=== PATIENT | male | born 1945 | race African-American/Black ===

== ENCOUNTER → 2020-03-23 | Day surgery (SDC) | payer MEDICARE, BC ==
--- NOTE | 2020-03-18 13:36 | Opthalmology H&P ---
Ophthalmology H&P H&P Chief Complaint: decreased vision in left eye HPI Vision Affects Ability to: read, manage personal affairs Past Ocular History: retinal problems - Macular edema OU HPI Narrative Blurry vision Exam Visual Acuity: OD 20/40 OS 20/40-2 Tension: OD 12 OS 14 Eye Exam: normal OU: external exam, palpebral fissure-width, marginal reflex distance, levator function, corneas, anterior chambers, fundus exam - NPDR OU; findings: lens - NS Cataracts OU, fundus exam - NPDR OU Assessment/Plan Treatment Plan: cataract extraction w/ lens implant Goals of Treatment: improvement of vision, enhance quality of life Attestation Attestation The risks and benefits of the surgery as well as alternative procedures were explained to the patient in detail. Bhargav Ralph MD Mar 18, 2020 13:36
--- NOTE | 2020-03-18 13:38 | Pre-Procedure Note/Attestation ---
Pre-Procedure Note/Attestation Complete Prior to Procedure Planned Procedure: left Procedure Narrative: Cataract extraction with intraocular lens implant left eye Indications for Procedure Pre-Operative Diagnosis: Nuclear sclerotic cataract left eye Attestation I attest that I discussed the nature of the procedure; its benefits; risks and complications; and alternatives (and the risks and benefits of such alternatives ), prior to the procedure, with the patient (or the patient's legal contact representative). I attest that, if there was a reasonable possibility of needing a blood transfusion, the patient (or the patient's legal contact representative) was given the [facility] standardized written summary, pursuant to the [place] Blood Safety Act ([place] Health and Safety Code # 1645, as amended). I attest that I re-evaluated the patient just prior to the surgery and that there has been no change in the patient's H&P, except as documented below: Bhargav Ralph MD Mar 18, 2020 13:38
[2020-03-19 08:48] LABS: HEMATOCRIT 27.5 % (42.0-52.0); HEMOGLOBIN 9.4 G/DL (14.2-18.0); MEAN CORPUSCULAR VOLUME 87 FL (80-99); PLATELET COUNT 191 K/UL (150-450); RED BLOOD COUNT 3.16 M/UL (4.70-6.10); RED CELL DISTRIBUTION WIDTH 16.3 % (11.6-14.8); WHITE BLOOD COUNT 8.9 K/UL (4.8-10.8)
[2020-03-19 08:52] LABS: INR 1.1 (0.9-1.1)
[2020-03-19 08:55] LABS: ANION GAP 8 mmol/L (5-15); BLOOD UREA NITROGEN 34 mg/dL (7-18); CALCIUM 8.5 MG/DL (8.5-10.1); CARBON DIOXIDE 28 MMOL/L (21-32); CHLORIDE 105 MMOL/L (98-107); CREATININE 2.3 MG/DL (0.55-1.30); POTASSIUM 3.8 MMOL/L (3.5-5.1); SODIUM 141 MMOL/L (136-145)
--- NOTE | 2020-03-19 11:03 | Diagnostic Imaging Report ---
Indication: Shortness of breath Technique: 2 views of the chest Comparison: None Findings: Left chest port catheter is demonstrated. The lungs and pleural spaces are clear. On the lateral view, there are surgical clips and what appears to be a pigtail drainage catheter in the upper abdomen, not appreciated on the PA view. Metallic objects overlie the heart on the PA view, probably demonstrated to be external to the patient on the lateral view Impression: No acute process. Findings as noted
[~2020-03-23] VITALS: Ht 167.6 cm; Wt 113.4 kg
[2020-03-23] VITALS (8 sets, daily range): BP systolic 134–149; BP diastolic 62–77
[~2020-03-23] MED LIST: ACETAMINOP160 MG/54 ORAL; ASCORBIC ACID500 M4 ORAL; ASPIR 8181 MG ORAL; ATORVASTATIN CA80 MG ORAL; Akten 3.5% 1ml Btl LEFT EYE ONE; Atropine Sulfate 0.4mg/ml inj IVP PRN; BSS 15ml BTL ONE; BSS 500ml btl ONE; Bupivacaine 0.75% 30ml vial INJ ONE; CARVEDILOL12.5 MG ORAL; CYMBALTA30 MG ORAL; Carbachol 0.01% Op Soln 1.5ml vial ONE; DOXAZOSIN MESYLA8 MG ORAL; DiphenhydrAMINE 50mg/ml Inj IVP PRN; ELIQUIS5 MG PO; EPINEPHrine 1mg/1ml Amp ONE; FERROUS SULFAT325 MG ORAL; FLOMAX0.4 MG ORAL; Flumazenil 0.5mg/5ml Inj IV ONE; GABAPENTIN400 MG ORAL; HYDROcodone/Acetamin 5/325 tab ORAL PRN; HYDROcodone/Acetamin 7.5/325 tab ORAL PRN; Heplock Flush 100 units/ml 3 ml syr INJ SCH; Heplock Flush 100 units/ml 3 ml syr ONE; Hydromorphone 0.5mg/0.5ml inj IVP PRN; Ketorolac 30mg Inj IV PRN; LORazepam Inj 2mg/ml 1ml IV PRN; LR 1000ml 1,000 ML IVLG SCH; LR 1000ml ONE; Labetalol 5mg/ml 20ml vial IV PRN; Lidocaine 1% MPF 10mg/ml 5ml ONE; Lidocaine 2% MPF 5ml Vial INJ ONE; Lidocaine 4% Amp 5ml ONE; MECLIZINE HCL25 MG ORAL; MELATONIN3 MG ORAL; Meperidine 25mg/0.5ml Inj (FOR RIGORS ONLY) IV PRN; Metoclopramide 10mg/2ml Inj IVP PRN; Midazolam 2mg/2ml Inj IVP PRN; NS Irrig 1000ml ONE; PROCARDIA XL90 M4 ORAL; Pilocarpine 1% Opth 15ml Soln ONE; Polysporin Oint 15gm TOPIC ONE; Povidone-Iodine 5% opth solution ONE; Proparacaine 0.5% Opth Soln 15ml LEFT EYE ONE; Sodium Hyaluronate 10 mg/ml 0.85ml ONE; Sterile Water Irrig 1000ml IRRIG ONE; TRESIBA100 UNIT/1 SQ; Tetracaine 0.5% Opth 4ml Soln LEFT EYE ONE; VICTOZA 3-0.6 MG/0.1 SQ; [UNRECOGNIZED DRUG - OTHER] IV; acetaZOLAMIDE 500mg Inj ONE; fentaNYL 100 mcg/2 mL IV PRN; oxyCODONE HCL/Acetaminophen 5/325mg ORAL PRN; prednisoLONE acetate 1% Opth Susp 1ml ONE
[2020-03-23] MEDS: Tropicamide 1% Opth 15ml Soln LEFT EYE SCH ×3 (08:26→08:44)
[2020-03-23] MEDS: Phenylephrine 10% Opth Soln 5ml LEFT EYE SCH ×3 (08:27→08:44)
[2020-03-23] MEDS: Diclofenac Sod 0.1% Op Soln LEFT EYE SCH ×3 (08:27→08:44)
[2020-03-23] MEDS: Cyclopentolate 1% Opth Sol 2ml LEFT EYE SCH ×3 (08:27→08:44)
[2020-03-23] MEDS: Tobramycin Op Soln 0.3% 5ml LEFT EYE SCH ×3 (08:27→08:44)
--- NOTE | 2020-03-23 09:57 | Anethesia Preoperative Eval ---
Anesthesia Pre-op PMH/ROS General Date of Evaluation: Mar 23, 2020 Time of Evaluation: 10:27 Anesthesiologist: Sharee ASA Score: ASA 3 Mallampati Score Class I : Soft palate, uvula, fauces, pillars visible Class II: Soft palate, uvula, fauces visible Class III: Soft palate, base of uvula visible Class IV: Only hard plate visible Mallampati Classification: Class III Surgeon: Loree Diagnosis: Cat OS Surgical Procedure: Cat Ext IOL OS Anesthesia History: none Family History: no anesthesia problems Allergies: Coded Allergies: No Known Allergies (Unverified , 03/19/20) Medications: see eMAR Patient NPO?: Yes Past Medical History Cardiovascular: Reports: HTN, other - HL Pulmonary: Reports: CARLYLE Gastrointestinal/Genitourinary: Reports: other - BPH Neurologic/Psychiatric: Reports: CVA Endocrine: Reports: DM Musculoskeletal/Integumentary: Reports: other - Weakness Other: obesity - Morbid BMI 42 Anesthesia Pre-op Phys. Exam Physician Exam Last Vital Signs Date Time Temp Pulse Resp B/P (MAP) Pulse Ox O2 Delivery O2 Flow Rate FiO2 03/23/20 08:34 97.4 61 18 135/77 100 Room Air Constitutional: NAD Neurologic: CN 2-12 intact Cardiovascular: RRR Respiratory: CTA Gastrointestinal: S/NT/ND Airway Exam Mallampati Score: Class III MO: limited ROM: limited Teeth: missing, intact Anesthesia Pre-op A/P Risk Assessment & Plan Assessment: ASA 3 Plan: TIVA Status Change Before Surgery: No Earnest Tolliver MD Mar 23, 2020 09:57
--- NOTE | 2020-03-23 09:58 | Immediate Post-Op Evaluation ---
Immediate Post-Op Evalulation Immediate Post-Op Evalulation Procedure: Cat Ext IOL OS Date of Evaluation: Mar 23, 2020 Time of Evaluation: 11:43 IV Fluids: 500 LR Blood Products: 0 Estimated Blood Loss: 1 Urinary Output: 0 Blood Pressure Systolic: 144 Blood Pressure Diastolic: 63 Pulse Rate: 53 Respiratory Rate: 16 O2 Sat by Pulse Oximetry: 100 Temperature (Fahrenheit): 97.6 Pain Score (1-10): 1 Nausea: No Vomiting: No Complications 0 Patient Status: awake, reacts, patent, none Hydration Status: adequate Earnest Tolliver MD Mar 23, 2020 09:58
--- NOTE | 2020-03-23 09:58 | 48 Hour Post Anesthesia Eval ---
Post Anesthesia Evaluation Procedure: Cat Ext IOL OS Date of Evaluation: Mar 23, 2020 Time of Evaluation: 13:54 Blood Pressure Systolic: 157 0: 64 Pulse Rate: 52 Respiratory Rate: 18 Temperature (Fahrenheit): 97.8 O2 Sat by Pulse Oximetry: 100 Airway: patent Nausea: No Vomiting: No Pain Intensity: 1 Hydration Status: adequate Cardiopulmonary Status: Stable Mental Status/LOC: patient returned to baseline Follow-up Care/Observations: 0 Post-Anesthesia Complications: 0 Follow-up care needed: ready to discharge Earnest Tolliver MD Mar 23, 2020 09:58
--- NOTE | 2020-03-23 15:11 | Brief Operative Note ---
Immediate Post Operative Note Operative Note Chief Complaint: Blurry vision Pre-op Diagnosis: Nuclear sclerotic cataract left eye Procedure: Cataract extraction with IOL implant left eye Post-op Diagnosis: Pseudophakia OS Findings: consistent w/pre-op dx studies Surgeon: Bhargav Ralph MD Anesthesiologist: Earnest Tolliver MD Anesthesia: MAC Specimen: none Complications: none Condition: stable Fluids: LR Estimated Blood Loss: none Drains: none Implant(s) used?: Yes - IOL-OS Bhargav Ralph MD Mar 23, 2020 15:11
--- NOTE | 2020-03-23 15:22 | Operative Note - PDOC ---
Operative Note Operative Note Date of Operation/Procedure: Mar 23, 2020 Chief Complaint: Blurry vision Pre-op Diagnosis: Nuclear sclerotic cataract left eye Procedure: Cataract extraction with IOL implant left eye Post-op Diagnosis: Pseudophakia OS Operative Findings: consistent w/pre-op dx studies Surgeon: Bhargav Ralph MD Anesthesiologist: Earnest Tolliver MD Anesthesia: MAC Specimen: none Complications: none Condition: stable Fluids: LR Estimated Blood Loss: none Drains: none Implant(s) used?: Yes - IOL-OS Indications for Procedure Nuclear sclerotic cataract left eye Description of Procedure This patient has been complaining visually significant cataract in the left eye with the best corrected visual acuity of 20/40-2 under moderate glare conditions worse. The patient complains of difficulties with glare in performing activities of daily living and wants to manage personal affairs with comfort and accuracy and see well enough to move with safety at home and outdoors. The risks, benefits and alternatives of the procedure were discussed with the patient in the office prior to scheduling surgery. All questions from the patient were answered after the surgical procedure was explained in detail. The risks of the procedure as explained to the patient include, but are not limited to, pain, infection, bleeding, loss of vision, retinal detachment, need for further surgery, loss of lens nucleus, double vision, etc. Alternative procedures were discussed which include, to do nothing or seek a second opinion. Informed consent for this procedure was obtained from the patient. The patient was referred to a primary care physician for a cardiopulmonary clearance prior to surgery, after proper evaluation was done patient was properly scheduled for outpatient surgery. The patient was brought to the operating room where the anesthesiologist established I.V. lines and cardiac monitoring leads. Mild intravenous sedation was administered. The patient was then prepared with a 5% solution of povidone -iodine to the conjunctival fornix and lashes, and a 5% solution of povidone- iodine to the lids and periorbital skin. The patient was then draped in the usual sterile fashion. A lid speculum was then placed in the operative eye. A keratome blade was then used to create a biplanar incision into the anterior chamber. Viscoelastics was then instilled into the anterior chamber. A capsulorrhexis was then fashioned with an utrata forceps A G 27 cannula was used to hydrodissect and hydro delineate the lens nucleus. Paracentesis incision was made at 3 o'clock with sharp blade. The phacoemulsification unit, after being properly adjusted and tested, was then used to emulsify the nucleus followed by aspiration and irrigation of residual cortical material. Healon was then instilled into the anterior chamber. The corneal wound was then enlarged to the size of the optic with the negar keratome blade. The intraocular lens was then inspected for right power and size and thought to be satisfactory. Then the lens was gently placed in the capsular bag. Positioning within the capsular bag was confirmed by direct visualization. Optic centration was accomplished with a Sinskey hook. Viscoelastics was removed from the anterior chamber using the irrigation and aspiration unit. The corneal wound was then tested for leaks and none were found. The lid speculum were then removed. Sponge and needle counts were correct. An eye patch and shield were placed over the operative eye. The patient was taken to the recovery room in stable condition. There were no complications. The patient tolerated the procedure well. The patient was then transferred to the ambulatory surgery unit in stable and satisfactory condition , was given detailed written instructions and asked to follow up in the office the next day Bhargav Ralph MD Mar 23, 2020 15:22
== END | disposition home or self-care (01) ==
LOC: SUR 06:32
DX: H25.12 Age-related nuclear cataract, left eye (principal); I10 Essential (primary) hypertension; G47.33 Obstructive sleep apnea (adult) (pediatric); E11.9 Type 2 diabetes mellitus without complications; E66.01 Morbid (severe) obesity due to excess calories; Z86.73 Personal history of transient ischemic attack (TIA), and cerebral infarction without residual deficits; Z68.41 Body mass index [BMI] 40.0-44.9, adult
CPT/HCPCS: 36415; 66984; 71046; 80048; 85007; 85025; 85610; 85730; 93005; 94003; J0171; J1100; J1120; J1642; J2250; J2704; J3370; J7120; V2632; 94150